=== PATIENT | female | born 1990 | race Caucasian/White ===

== ENCOUNTER 2018-06-14 10:16 | Emergency (ER) | payer MEDICAID ==
[~2018-06-14] VITALS: Ht 170.2 cm; Wt 84.1 kg
[~2018-06-14 10:16] MED LIST: ALPR1TAB2 PO; CEFT1PIG2 IV; ESCI10TA10 PO
[2018-06-14] MEDS ORDERED: KETOROLAC 30 MG/1 ML ONE (10:35)
--- NOTE | 2018-06-14 10:59 | NUR ---
PT C/O EPIGASTRIC AND LOWER RIB CAGE PAIN REPORTS PAIN EXTENDS FROM R LAT TO L LAT RIBS PT AO4 RESTING AT THIS TIME NADA REPORTS HAS STOPPED METH USE AT THIS TIME UNSURE OF WHEN LAST METH USE HX AT 18 MO OPEN HEART SURG
[2018-06-14] MEDS ORDERED: KETOROLAC 30 MG/1 ML IM ONE (11:00)
[2018-06-14] MEDS ORDERED: SODIUM CHLORIDE FLUSH 10ML SYR IVF ONE (11:00)
[2018-06-14 11:12] LABS: BASOPHILS # (AUTO) 0.04 x10^3/uL (0-0.1); BASOPHILS % (AUTO) 1 % (0-1); EOSINOPHILS # (AUTO) 0.14 x10^3/uL (0-0.4); EOSINOPHILS % (AUTO) 3 % (1-7); LYMPHOCYTES # (AUTO) 1.55 x10^3/uL (1-3.4); LYMPHOCYTES % (AUTO) 30 % (22-44); MD NO; MEAN CORPUSCULAR HEMOGLOBIN 29.3 pg (27.0-34.8); MEAN PLATELET VOLUME 9.7 fL (7.4-10.4); MONOCYTES # (AUTO) 0.48 x10^3/uL (0.2-0.8); MONOCYTES % (AUTO) 9 % (2-9); NEUTROPHILS # (AUTO) 2.94 x10^3/uL (1.8-6.8); NEUTROPHILS % (AUTO) 57 % (42-75); PLATELET COUNT 187 x10^3/uL (130-400); RED BLOOD COUNT 4.38 x10^6/uL (3.82-5.3); RED CELL DISTRIBUTION WIDTH 12.6 % (9.6-15.2)
[2018-06-14 11:25] LABS: ALBUMIN 3.9 g/dL (3.4-5.0); ANION GAP 5 mmol/L (5-15); CALCIUM 8.7 mg/dL (8.5-10.1); CHLORIDE 109 mmol/L (98-107)
[2018-06-14 11:30] LABS: TROPONIN I < 0.015 ng/mL (0.000-0.045)
[2018-06-14 12:12] VITALS: BP 104/75
== END 2018-06-14 12:15 | disposition home or self-care (01) ==
LOC: ED 11:30
DX: R07.89 Other chest pain (principal); F12.10 Cannabis abuse, uncomplicated; F17.200 Nicotine dependence, unspecified, uncomplicated
CPT/HCPCS: 36415; 71046; 80048; 82040; 83880; 84484; 85025; 93005; 96372; 99283; J1885; 99284

== ENCOUNTER 2018-07-11 09:55 | Emergency (ER) | payer MEDICAID ==
[~2018-07-11] VITALS: Ht 170.2 cm; Wt 86.6 kg
--- NOTE | 2018-07-11 10:19 | NUR ---
PT HERE FOR PAIN AT THE BASE OF HER RIBS THAT WRAPS AROUND TO BACK. STATES THAT SHE WAS HERE ABOUT 3 WEEKS AGO FOR SAME THING AND WAS NOT GIVEN A DIAGNOSIS. HER PRIMARY TOLD HER IT COULD BE A CHEST CONTUSION. SHE HAD SURGERY A CHILD FOR "A HOLE IN HER LEFT VENTRICLE." YESTERDAY SHE WOKE UP WITH THE PAIN, WHICH HAS NEVER HAPPENED, AND THEN DURING INTERCOARSE, SHE BECAME EXTREMELY SHORT OF BREATH WITH THE PAIN. PATIENT CAN NOT IDENTIFY ANY AGGREVATING FACTORS.
[2018-07-11] MEDS ORDERED: NAPR-758 PO (10:28)
--- NOTE | 2018-07-11 10:40 | NUR ---
MD TO BEDSIDE TO ASSESS PT. AWAITING ORDERS
--- NOTE | 2018-07-11 10:59 | NUR ---
LAB AT BEDSIDE
[2018-07-11 11:11] LABS: BASOPHILS # (AUTO) 0.02 x10^3/uL (0-0.1); BASOPHILS % (AUTO) 0 % (0-1); EOSINOPHILS # (AUTO) 0.16 x10^3/uL (0-0.4); EOSINOPHILS % (AUTO) 3 % (1-7); LYMPHOCYTES # (AUTO) 1.46 x10^3/uL (1-3.4); LYMPHOCYTES % (AUTO) 28 % (22-44); MD NO; MEAN CORPUSCULAR HGB CONC 34.1 g/dL (32.4-35.8); MEAN PLATELET VOLUME 9.7 fL (7.4-10.4); MONOCYTES # (AUTO) 0.56 x10^3/uL (0.2-0.8); MONOCYTES % (AUTO) 11 % (2-9); NEUTROPHILS # (AUTO) 3.02 x10^3/uL (1.8-6.8); NEUTROPHILS % (AUTO) 58 % (42-75); PLATELET COUNT 209 x10^3/uL (130-400); RED BLOOD COUNT 4.17 x10^6/uL (3.82-5.3); RED CELL DISTRIBUTION WIDTH 12.9 % (9.6-15.2)
[2018-07-11 11:21] LABS: ALANINE AMINOTRANSFERASE 24 U/L (12-78); ALBUMIN 3.7 g/dL (3.4-5.0); ANION GAP 4 mmol/L (5-15); CHLORIDE 110 mmol/L (98-107); CREATININE 0.73 mg/dL (0.55-1.02)
[2018-07-11 11:24] LABS: ALKALINE PHOSPHATASE 53 U/L (45-117); BILIRUBIN,TOTAL 0.9 mg/dL (0.2-1.0); TOTAL PROTEIN 7.1 g/dL (6.4-8.2)
--- NOTE | 2018-07-11 11:24 | NUR ---
PT TO US
[2018-07-11 12:02] VITALS: BP 108/52
--- NOTE | 2018-07-11 12:04 | NUR ---
PT BACK FROM US. VSS. CALL LIGHT WITHIN REACH. FAMILY AT BEDSIDE. NO NEEDS AT THIS TIME.
--- NOTE | 2018-07-11 12:22 | NUR ---
ALL RESULTS BACK AT THIS TIME. CHART UP FOR RECHECK.
== END 2018-07-11 13:19 | disposition home or self-care (01) ==
LOC: ED 10:35
DX: R10.13 Epigastric pain (principal); R07.89 Other chest pain; R06.02 Shortness of breath; F17.200 Nicotine dependence, unspecified, uncomplicated
CPT/HCPCS: 36415; 76700; 80053; 83690; 85025; 93005; 99284

== ENCOUNTER 2019-01-23 11:48 | Emergency (ER) | payer MEDICAID ==
[~2019-01-23] VITALS: Ht 170.2 cm; Wt 106.4 kg
[2019-01-23 12:02] VITALS: BP 134/78
== END 2019-01-23 13:28 | disposition home or self-care (01) ==
LOC: ED 13:16
DX: G24.3 Spasmodic torticollis (principal)
CPT/HCPCS: 96372; 99283; J1885

== ENCOUNTER 2019-09-05 09:18 | Emergency (ER) | payer SELFPAY ==
[~2019-09-05] VITALS: Ht 170.2 cm; Wt 107.3 kg
[~2019-09-05 09:18] MED LIST changes: +NAPR-758 PO
[2019-09-05 09:48] VITALS: BP 151/85
== END 2019-09-05 10:19 | disposition home or self-care (01) ==
LOC: ED 10:05
DX: B34.9 Viral infection, unspecified (principal)
CPT/HCPCS: 99283

== ENCOUNTER 2020-08-22 16:18 | Observation (INO) | payer MEDICAID ==
[~2020-08-22] VITALS: Ht 170.2 cm; Wt 114.5 kg
[2020-08-22] MEDS ORDERED: CEFAZOLIN PMX 1GM/50ML IVPB ONE (17:00)
[2020-08-22] MEDS ORDERED: LACTATED RINGERS 1,000 ML IV SCH (17:00)
[2020-08-22] MEDS ORDERED: LACTATED RINGERS 1,000 ML IVBOLUS PRN (17:00)
[2020-08-22] MEDS ORDERED: CEFAZOLIN 1,000 MG ONE (17:28)
[2020-08-22] MEDS ORDERED: FENTANYL PF 100 MCG/2ML ONE (17:29)
[2020-08-22 17:30] LABS: BASOPHILS % (AUTO) 1 % (0-1); EOSINOPHILS % (AUTO) 1 % (1-7); LYMPHOCYTES % (AUTO) 22 % (22-44); MEAN CORPUSCULAR HEMOGLOBIN 30.3 pg (27.0-34.8); MEAN CORPUSCULAR HGB CONC 34.4 g/dL (32.4-35.8); MEAN PLATELET VOLUME 9.9 fL (7.4-10.4); MONOCYTES % (AUTO) 8 % (2-9); NEUTROPHILS % (AUTO) 69 % (42-75); PLATELET COUNT 179 x10^3/uL (130-400); RED BLOOD COUNT 3.68 x10^6/uL (3.82-5.3); RED CELL DISTRIBUTION WIDTH 12.9 % (9.6-15.2)
[2020-08-22] MEDS ORDERED: CEFAZOLIN PMX 1GM/50ML 50 ML IV ONE (17:30)
[2020-08-22 17:38] LABS: MD NO
[2020-08-22] MEDS ORDERED: MIDAZOLAM 1 MG/ML, 2ML ONE (18:22)
[2020-08-22] MEDS ORDERED: ACETAMINOPHEN 325 MG TABLET PO PRN (19:30)
== END 2020-08-22 23:06 | disposition home or self-care (01) ==
LOC: LDOP 16:18 → LDIP 19:20
PROVIDERS: ADMIT Obstetrics & Gynecology Maternal & Fetal Medicine; ATTEND Obstetrics & Gynecology Maternal & Fetal Medicine
DX: O26.872 Cervical shortening, second trimester (principal); Z20.822 Contact with and (suspected) exposure to COVID-19; Z87.59 Personal history of other complications of pregnancy, childbirth and the puerperium; Z3A.19 19 weeks gestation of pregnancy; Z79.899 Other long term (current) drug therapy
CPT/HCPCS: 36415; 59320; 85025; 87635; 96360; 96361; G0378; J0690; J2250; J3010; J7120

== ENCOUNTER 2020-12-05 11:26 | Outpatient (CLI) | payer MEDICAID ==
[~2020-12-05] VITALS: Ht 170.2 cm; Wt 122.3 kg
[2020-12-05 11:05] VITALS: BP 115/78
[2020-12-05 12:11] LABS: ALANINE AMINOTRANSFERASE 150 U/L (12-78); ALBUMIN 2.6 g/dL (3.4-5.0); ANION GAP 7 mmol/L (5-15); CALCIUM 9.5 mg/dL (8.5-10.1); CHLORIDE 108 mmol/L (98-107); CREATININE 0.55 mg/dL (0.55-1.02)
[2020-12-05 12:13] LABS: ALKALINE PHOSPHATASE 184 U/L (45-117); BILIRUBIN,TOTAL 0.5 mg/dL (0.2-1.0); TOTAL PROTEIN 6.7 g/dL (6.4-8.2)
== END 2020-12-05 13:02 | disposition home or self-care (01) ==
LOC: LDOP 11:26
PROVIDERS: ATTEND Obstetrics & Gynecology Maternal & Fetal Medicine
DX: Z34.93 Encounter for supervision of normal pregnancy, unspecified, third trimester (principal); Z3A.34 34 weeks gestation of pregnancy
CPT/HCPCS: 36415; 59025; 80053; 82239

== ENCOUNTER 2021-01-03 00:44 | Inpatient (IN) | payer MEDICAID ==
[~2021-01-03] VITALS: Ht 170.2 cm; Wt 125.5 kg
[2021-01-03] MEDS ORDERED: SODIUM CITRATE/CITRIC ACID 15 ML UDC ONE (01:02)
[2021-01-03] MEDS ORDERED: METOCLOPRAMIDE 5 MG/ML, 2ML ONE (01:02)
[2021-01-03] MEDS ORDERED: NEWBORN KIT ONE (01:02)
[2021-01-03] MEDS ORDERED: OXYTOCIN 30U/ 0.9% NaCL 500ML 500 ML ONE (01:02)
[2021-01-03] MEDS ORDERED: METOCLOPRAMIDE 5 MG/ML, 2ML IV ONE (01:30)
[2021-01-03] MEDS ORDERED: LACTATED RINGERS 1,000 ML IVBOLUS ONE (01:30)
[2021-01-03] MEDS ORDERED: SODIUM CITRATE/CITRIC ACID 30 ML UDC PO ONE (01:30)
[2021-01-03 01:39] VITALS: BP 122/68
[2021-01-03 01:49] LABS: BASOPHILS % (AUTO) 1 % (0-1); EOSINOPHILS % (AUTO) 1 % (1-7); LYMPHOCYTES % (AUTO) 23 % (22-44); MEAN CORPUSCULAR HEMOGLOBIN 30.2 pg (27.0-34.8); MEAN CORPUSCULAR HGB CONC 33.6 g/dL (32.4-35.8); MONOCYTES % (AUTO) 8 % (2-9); NEUTROPHILS % (AUTO) 67 % (42-75); PLATELET COUNT 162 x10^3/uL (130-400); RED BLOOD COUNT 3.28 x10^6/uL (3.82-5.3)
[2021-01-03] MEDS ORDERED: FENTANYL PF 100 MCG/2ML ONE (02:38)
[2021-01-03] MEDS: FENTANYL PF 100 MCG/2ML IVPush PRN ×2 (02:39→03:42)
[2021-01-03] MEDS ORDERED: FENTANYL PF 100 MCG/2ML IV PRN (03:00)
[2021-01-03] MEDS ORDERED: AZITHROMYCIN 500 MG in SODIUM CHLORIDE 0.9% 250 ML IV ONE (07:20)
[2021-01-03] MEDS ORDERED: morphine SULFATE/PF 0.5 MG/ML, 10ML ONE (08:09)
[2021-01-03] MEDS: LACTATED RINGERS 1,000 ML IV SCH ×6 (08:09→20:00)
[2021-01-03] MEDS ORDERED: OXYTOCIN 10 UNITS/ML, 1ML ONE ×2 (08:13→08:15)
[2021-01-03] MEDS ORDERED: SODIUM CHLORIDE 0.9% PF 10ML ONE ×2 (08:13→08:14)
[2021-01-03] MEDS ORDERED: ONDANSETRON 2MG/ML, 2ML ONE (08:13)
[2021-01-03] MEDS ORDERED: CEFAZOLIN 1,000 MG ONE (08:13)
[2021-01-03] MEDS ORDERED: DEXAMETHASONE 4 MG/ML, 1ML ONE (08:13)
[2021-01-03] MEDS ORDERED: KETOROLAC 30 MG/1 ML ONE (08:13)
[2021-01-03] MEDS ORDERED: PHENYLEPHRINE 10 MG/ML ONE (08:14)
[2021-01-03 09:17] LABS: MICROSCOPIC INDICATED
[2021-01-03] MEDS ORDERED: SIMETHICONE 80 MG CHEW TAB PO PRN (10:00)
[2021-01-03] MEDS ORDERED: ACETAMINOPHEN 325 MG TABLET PO PRN (10:00)
[2021-01-03] MEDS ORDERED: ONDANSETRON 2MG/ML, 2ML IV PRN (10:00)
[2021-01-03] MEDS ORDERED: MISOPROSTOL 200 MCG TABLET PR PRN (10:00)
[2021-01-03] MEDS ORDERED: CALCIUM CARBONATE 500 MG TAB.CHEW PO PRN (10:00)
[2021-01-03] MEDS ORDERED: KETOROLAC 30 MG/1 ML IV SCH (10:00)
[2021-01-03] MEDS ORDERED: METHYLERGONOVINE 0.2 MG/ML IM PRN (10:00)
[2021-01-03] MEDS ORDERED: OXYcodone/APAP 5/325MG TABLET PO PRN (10:00)
[2021-01-03] MEDS ORDERED: CARBOPROST TROMETHAMINE 250 MCG/ML, 1ML IM PRN (10:00)
[2021-01-03 10:52] LABS: INTERNATIONAL NORMALIZED RATIO 0.96 (0.93-1.1); PROTHROMBIN TIME 10.3 Seconds (9.6-11.5)
[2021-01-03 10:53] LABS: % IRON SATURATION 19 % (20-55); IRON LEVEL 82 mcg/dL (50-170); TOTAL IRON BINDING CAPACITY 434 mcg/dL (250-450)
[2021-01-03] MEDS: OXYTOCIN 30U/ 0.9% NaCL 500ML 500 ML IV SCH ×2 (11:41→20:00)
[2021-01-03 12:00] VITALS: BP 126/80
[2021-01-03] MEDS ORDERED: NALOXONE 0.4 MG/ML, 1ML IV PRN (13:30)
[2021-01-03] MEDS ORDERED: morphine SULFATE 10 MG/ML, 1ML IVPush PRN (13:30)
[2021-01-03] MEDS ORDERED: ONDANSETRON 2MG/ML, 2ML IVPush PRN (13:30)
[2021-01-03] MEDS ORDERED: DIPHENHYDRAMINE 50 MG/ML, 1ML IV PRN (13:30)
[2021-01-03] MEDS ORDERED: EPHEDRINE 50 MG/ML, 1ML IVPush PRN (13:30)
[2021-01-03] MEDS ORDERED: NO SEDATIVES, TRANQUILIZERS OR ANTIEMETICS XX SCH (13:30)
[2021-01-03] MEDS: KETOROLAC 30 MG/1 ML IVPush SCH ×2 (15:48→21:57)
[2021-01-03] MEDS: DOCUSATE 100 MG CAPSULE PO PRN ×2 (15:48→21:57)
[2021-01-03 16:00] VITALS: BP 110/68
[2021-01-03 16:40] LABS: BASOPHILS % (AUTO) 0 % (0-1); EOSINOPHILS % (AUTO) 0 % (1-7); LYMPHOCYTES % (AUTO) 11 % (22-44); MEAN CORPUSCULAR HEMOGLOBIN 30.5 pg (27.0-34.8); MEAN CORPUSCULAR HGB CONC 34.2 g/dL (32.4-35.8); MEAN PLATELET VOLUME 10.7 fL (7.4-10.4); MONOCYTES % (AUTO) 5 % (2-9); NEUTROPHILS % (AUTO) 84 % (42-75); PLATELET COUNT 163 x10^3/uL (130-400); RED CELL DISTRIBUTION WIDTH 13.7 % (9.6-15.2)
[2021-01-03] MEDS: FERROUS GLUCONATE 324 MG TABLET PO SCH (17:00)
[2021-01-03] MEDS ORDERED: RHOGAM FROM BLOOD BANK 1 NOTE EA IM/IV ONE (18:00)
[2021-01-03 20:00] VITALS: BP 108/64
[2021-01-03] MEDS: OXYcodone/APAP 5/325MG TABLET PO PRN (21:58)
[2021-01-04 00:10] VITALS: BP 107/72
[2021-01-04] MEDS: LACTATED RINGERS 1,000 ML IV SCH ×8 (02:00→18:00)
[2021-01-04] MEDS: OXYcodone/APAP 5/325MG TABLET PO PRN ×4 (02:20→20:12)
[2021-01-04] MEDS: KETOROLAC 30 MG/1 ML IVPush SCH ×4 (02:20→18:37)
[2021-01-04 04:00] VITALS: BP 111/72
[2021-01-04] MEDS: OXYTOCIN 30U/ 0.9% NaCL 500ML 500 ML IV SCH ×2 (06:00→16:00)
[2021-01-04 08:10] VITALS: BP 100/66
[2021-01-04] MEDS: FERROUS GLUCONATE 324 MG TABLET PO SCH (18:36)
[2021-01-04 20:10] VITALS: BP 127/72
[2021-01-04] MEDS: DOCUSATE 100 MG CAPSULE PO PRN (20:12)
[2021-01-04] MEDS: PRENATAL VIT/IRON/FA 1 EACH TABLET PO SCH (20:12)
[2021-01-05] MEDS: LACTATED RINGERS 1,000 ML IV SCH ×10 (00:08→23:57)
[2021-01-05] MEDS: OXYcodone/APAP 5/325MG TABLET PO PRN ×3 (00:17→12:38)
[2021-01-05] MEDS: KETOROLAC 30 MG/1 ML IVPush SCH ×4 (01:20→19:38)
[2021-01-05] MEDS: OXYTOCIN 30U/ 0.9% NaCL 500ML 500 ML IV SCH ×3 (02:31→22:57)
[2021-01-05 08:00] VITALS: BP 122/74
[2021-01-05] MEDS: DOCUSATE 100 MG CAPSULE PO PRN ×2 (08:34→19:38)
[2021-01-05] MEDS: PRENATAL VIT/IRON/FA 1 EACH TABLET PO SCH (08:34)
[2021-01-05] MEDS ORDERED: IBUPROFEN 600 MG TABLET PO PRN (10:00)
[2021-01-05] MEDS: FERROUS GLUCONATE 324 MG TABLET PO SCH (17:00)
[2021-01-05] MEDS: OXYcodone IR 5MG TABLET PO PRN (18:28)
[2021-01-05 19:45] VITALS: BP 130/80
[2021-01-06] MEDS: OXYcodone IR 5MG TABLET PO PRN ×2 (00:37→07:50)
[2021-01-06] MEDS: KETOROLAC 30 MG/1 ML IVPush SCH (01:43)
[2021-01-06] MEDS: LACTATED RINGERS 1,000 ML IV SCH ×4 (02:22→10:00)
[2021-01-06] MEDS ORDERED: FERR324T23 PO (07:29)
[2021-01-06] MEDS ORDERED: DOCU-131 PO (07:29)
[2021-01-06] MEDS ORDERED: OXYC5TAB98 PO (07:29)
[2021-01-06] MEDS ORDERED: IBUP-1222 PO (07:29)
[2021-01-06] MEDS ORDERED: IBUPROFEN 600 MG TABLET PO PRN (07:30)
[2021-01-06 07:45] VITALS: BP 116/82
[2021-01-06] MEDS: DOCUSATE 100 MG CAPSULE PO PRN (07:48)
[2021-01-06] MEDS: PRENATAL VIT/IRON/FA 1 EACH TABLET PO SCH (07:48)
[2021-01-06] MEDS: OXYTOCIN 30U/ 0.9% NaCL 500ML 500 ML IV SCH (08:00)
[2021-01-06] MEDS ORDERED: PREN1TAB10 PO (11:32)
[2021-01-08] MEDS ORDERED: IBUPROFEN 600 MG TABLET PO PRN (09:00)
== END 2021-01-06 12:00 | disposition home or self-care (01) | DRG 540 ==
LOC: LDIP 00:44 → 2NW 11:53
PROVIDERS: ADMIT Obstetrics & Gynecology Maternal & Fetal Medicine; ATTEND Obstetrics & Gynecology Maternal & Fetal Medicine
PROC: 10D00Z1 Extraction of Products of Conception, Low, Open Approach (ICD-10-PCS; principal; 2021-01-03)
PROC: 3E0234Z Introduction of Serum, Toxoid and Vaccine into Muscle, Percutaneous Approach (ICD-10-PCS; 2021-01-03)
DX: O36.63X0 Maternal care for excessive fetal growth, third trimester, not applicable or unspecified (principal); D64.9 Anemia, unspecified; Z20.822 Contact with and (suspected) exposure to COVID-19; O90.81 Anemia of the puerperium; O77.0 Labor and delivery complicated by meconium in amniotic fluid; Z3A.39 39 weeks gestation of pregnancy; Z37.0 Single live birth; Z67.40 Type O blood, Rh positive; O26.893 Other specified pregnancy related conditions, third trimester
CPT/HCPCS: 36415; 81001; 83540; 83550; 85025; 85461; 85610; 85730; 86592; 86850; 86900; 87635; 88307; G0378; J0456; J0690; J1100; J1885; J2274; J2405; J2790; J3010; J2370; J2590; J2765; J7050; J7120